=== PATIENT | female | born 1975 | race Two or more races ===

== ENCOUNTER 2019-11-02 12:44 | Emergency (ER) | payer MEDICAID ==
[~2019-11-02] VITALS: Ht 165.1 cm; Wt 74.5 kg
[2019-11-02 13:32] LABS: BASOPHILS # (AUTO) 0.1 X10'3 (0-0.2); BASOPHILS % (AUTO) 0.7 % (0-1); EOSINOPHILS # (AUTO) 0.2 X10'3 (0-0.9); EOSINOPHILS % (AUTO) 2.9 % (0-6); HEMATOCRIT 37.8 % (35.0-45.0); HEMOGLOBIN 13.1 g/dl (12.0-16.0); LYMPHOCYTES # (AUTO) 1.6 X10'3 (1.1-4.8); LYMPHOCYTES % (AUTO) 19.8 % (21-51); MEAN CORPUSCULAR HEMOGLOBIN 28.7 PG (27.0-31.0); MEAN CORPUSCULAR HGB CONC 34.7 g/dL (33.0-36.5); MEAN CORPUSCULAR VOLUME 82.8 FL (78-98); MEAN PLATELET VOLUME 9.2 FL (7.4-10.4); MONOCYTES # (AUTO) 0.4 X10'3 (0-0.9); MONOCYTES % (AUTO) 4.9 % (2-12); NEUTROPHILS # (AUTO) 5.7 X10'3 (1.8-7.7); NEUTROPHILS % (AUTO) 71.7 % (42-75); PLATELET COUNT 226 X10'3 (140-440); RED BLOOD COUNT 4.56 X10'6 (4.20-5.60); RED CELL DISTRIBUTION WIDTH 16.1 % (11.5-14.5)
[2019-11-02 13:46] LABS: ALANINE AMINOTRANSFERASE 17 U/L (12-78); ALBUMIN 3.7 G/DL (3.4-5.0); ALKALINE PHOSPHATASE 96 IU/L (46-116); ANION GAP 8 (8-16); ASPARTATE AMINO TRANSFERASE 17 U/L (10-37); BILIRUBIN,TOTAL 1.1 MG/DL (0.1-1.0); BLOOD UREA NITROGEN 14 MG/DL (7-18); BUN/CREATININE RATIO 24.6 (6.6-38.0); CALCIUM 8.4 MG/DL (8.5-10.1); CHLORIDE 107 MMOL/L (99-107); CREATININE 0.57 MG/DL (0.40-0.90); GLUCOSE 104 MG/DL (70-104); POTASSIUM 3.9 MMOL/L (3.5-5.1); SODIUM 139 MMOL/L (135-145); TOTAL CARBON DIOXIDE 24.4 MMOL/L (24-32); TOTAL PROTEIN 7.5 G/DL (6.4-8.2); eGFR > 90 ML/MIN
[2019-11-02] MEDS ORDERED: nitroGLYCERIN 0.4mg SUBLingual tab SL PRN ×2 (15:20→15:35)
[2019-11-02] MEDS ORDERED: acetaminophen 325mg tablet PO ONE (15:20)
[2019-11-02] MEDS ORDERED: aspirin 81mg tab.chew PO ONE (15:20)
[2019-11-02 18:11] VITALS: BP 119/79
== END 2019-11-02 17:57 | disposition home or self-care (01) ==
LOC: ER 12:44
DX: R07.89 Other chest pain (principal); R42 Dizziness and giddiness; E78.00 Pure hypercholesterolemia, unspecified; I10 Essential (primary) hypertension; I25.2 Old myocardial infarction; Z88.0 Allergy status to penicillin
CPT/HCPCS: 36415; 71045; 80053; 84484; 85025; 93005; 99285

== ENCOUNTER 2019-12-08 12:49 | Emergency (ER) | payer MEDICAID ==
[~2019-12-08] VITALS: Ht 165.1 cm; Wt 77.3 kg
[2019-12-08 13:09] LABS: BASOPHILS % (AUTO) 0.5 % (0-1); EOSINOPHILS # (AUTO) 0.2 X10'3 (0-0.9); EOSINOPHILS % (AUTO) 2.3 % (0-6); HEMATOCRIT 40.9 % (35.0-45.0); HEMOGLOBIN 13.7 g/dl (12.0-16.0); LYMPHOCYTES # (AUTO) 1.5 X10'3 (1.1-4.8); LYMPHOCYTES % (AUTO) 20.7 % (21-51); MEAN CORPUSCULAR HEMOGLOBIN 27.6 PG (27.0-31.0); MEAN CORPUSCULAR HGB CONC 33.4 g/dL (33.0-36.5); MEAN CORPUSCULAR VOLUME 82.4 FL (78-98); MEAN PLATELET VOLUME 9.4 FL (7.4-10.4); MONOCYTES # (AUTO) 0.2 X10'3 (0-0.9); MONOCYTES % (AUTO) 3.4 % (2-12); NEUTROPHILS # (AUTO) 5.3 X10'3 (1.8-7.7); NEUTROPHILS % (AUTO) 73.1 % (42-75); PLATELET COUNT 222 X10'3 (140-440); RED BLOOD COUNT 4.97 X10'6 (4.20-5.60); RED CELL DISTRIBUTION WIDTH 15.1 % (11.5-14.5); WHITE BLOOD COUNT 7.3 X10'3 (4.5-11.0)
[2019-12-08] MEDS ORDERED: aspirin 81mg tab.chew PO ONE (13:10)
[2019-12-08] MEDS: nitroGLYCERIN 0.4mg SUBLingual tab SL PRN ×2 (13:12→13:43)
[2019-12-08 13:23] LABS: ALANINE AMINOTRANSFERASE 25 U/L (12-78); ALKALINE PHOSPHATASE 105 IU/L (46-116); ANION GAP 11 (8-16); ASPARTATE AMINO TRANSFERASE 21 U/L (10-37); BILIRUBIN,TOTAL 1.5 MG/DL (0.1-1.0); BLOOD UREA NITROGEN 11 MG/DL (7-18); BUN/CREATININE RATIO 13.4 (6.6-38.0); CALCIUM 9.5 MG/DL (8.5-10.1); CHLORIDE 104 MMOL/L (99-107); CREATININE 0.82 MG/DL (0.40-0.90); GLUCOSE 148 MG/DL (70-104); POTASSIUM 3.8 MMOL/L (3.5-5.1); SODIUM 140 MMOL/L (135-145); TOTAL CARBON DIOXIDE 25.5 MMOL/L (24-32); TOTAL PROTEIN 7.9 G/DL (6.4-8.2); eGFR 76 ML/MIN
[2019-12-08 14:06] LABS: D-DIMER < 0.19 MG/L FEU (0-0.50)
[2019-12-08] MEDS ORDERED: ASPI81TA52 PO (14:14)
[2019-12-08] MEDS ORDERED: ATOR20TA PO (14:14)
[2019-12-08] MEDS ORDERED: CHOL20004 PO (14:14)
[2019-12-08] MEDS ORDERED: CARV3.122 PO (14:14)
[2019-12-08] MEDS ORDERED: LEVO125T8 PO (14:14)
[2019-12-08] MEDS ORDERED: WARF1TAB83 PO (14:14)
[2019-12-08] MEDS ORDERED: WARF10TA50 PO (14:14)
[2019-12-08] MEDS ORDERED: DULO60CA65 PO (14:14)
[2019-12-08] MEDS ORDERED: KEP500T PO (14:14)
[2019-12-08] MEDS ORDERED: CYAN500011 PO (14:22)
[2019-12-08] MEDS ORDERED: ISOS30TA9 PO (16:30)
[2019-12-08 17:14] VITALS: BP 127/57
== END 2019-12-08 17:16 | disposition home or self-care (01) ==
LOC: ER 12:49
DX: I20.9 Angina pectoris, unspecified (principal); R07.9 Chest pain, unspecified; R06.02 Shortness of breath; R11.0 Nausea; E78.00 Pure hypercholesterolemia, unspecified; I10 Essential (primary) hypertension; I25.2 Old myocardial infarction; G89.29 Other chronic pain; Z98.890 Other specified postprocedural states; Z88.0 Allergy status to penicillin; Z79.01 Long term (current) use of anticoagulants; Z79.82 Long term (current) use of aspirin; Z79.899 Other long term (current) drug therapy
CPT/HCPCS: 36415; 71045; 80053; 83880; 84484; 85025; 85379; 93005; 99285

== ENCOUNTER 2020-02-15 10:56 | Emergency (ER) | payer MEDICAID ==
[~2020-02-15] VITALS: Ht 165.1 cm; Wt 84.2 kg
[~2020-02-15 10:56] MED LIST: ASPI81TA52 PO; ATOR20TA PO; CARV3.122 PO; CHOL20004 PO; CYAN500011 PO; DULO60CA65 PO; KEP500T PO; LEVO125T8 PO; WARF10TA50 PO; WARF1TAB83 PO
--- NOTE | 2020-02-15 12:02 | NUR ---
Per Dr Wild if troponin lab ordered results negative then patient to have send out Novel Coronavirus swab, if positive then patient will be admitted at which time patient will have rapid Novel Coronavirus swab prior to admission. ERIC Begum made aware.
[2020-02-15 12:18] LABS: BASOPHILS % (AUTO) 0.8 % (0-1); EOSINOPHILS # (AUTO) 0.1 X10'3 (0-0.9); EOSINOPHILS % (AUTO) 2.2 % (0-6); HEMATOCRIT 40.4 % (35.0-45.0); HEMOGLOBIN 13.8 g/dl (12.0-16.0); LYMPHOCYTES # (AUTO) 1.3 X10'3 (1.1-4.8); LYMPHOCYTES % (AUTO) 26.1 % (21-51); MEAN CORPUSCULAR HEMOGLOBIN 28.3 PG (27.0-31.0); MEAN CORPUSCULAR HGB CONC 34.1 g/dL (33.0-36.5); MEAN CORPUSCULAR VOLUME 82.8 FL (78-98); MEAN PLATELET VOLUME 9.3 FL (7.4-10.4); MONOCYTES # (AUTO) 0.2 X10'3 (0-0.9); MONOCYTES % (AUTO) 4.3 % (2-12); NEUTROPHILS # (AUTO) 3.2 X10'3 (1.8-7.7); NEUTROPHILS % (AUTO) 66.6 % (42-75); PLATELET COUNT 193 X10'3 (140-440); RED BLOOD COUNT 4.88 X10'6 (4.20-5.60); RED CELL DISTRIBUTION WIDTH 17.2 % (11.5-14.5); WHITE BLOOD COUNT 4.8 X10'3 (4.5-11.0)
[2020-02-15 12:27] LABS: ALANINE AMINOTRANSFERASE 41 U/L (12-78); ALKALINE PHOSPHATASE 106 IU/L (46-116); ANION GAP 11 (8-16); ASPARTATE AMINO TRANSFERASE 26 U/L (10-37); BILIRUBIN,TOTAL 1.4 MG/DL (0.1-1.0); BLOOD UREA NITROGEN 12 MG/DL (7-18); BUN/CREATININE RATIO 14.8 (6.6-38.0); CALCIUM 9.1 MG/DL (8.5-10.1); CHLORIDE 103 MMOL/L (99-107); CREATININE 0.81 MG/DL (0.40-0.90); GLUCOSE 197 MG/DL (70-104); POTASSIUM 3.7 MMOL/L (3.5-5.1); SODIUM 139 MMOL/L (135-145); TOTAL CARBON DIOXIDE 24.8 MMOL/L (24-32); TOTAL PROTEIN 7.9 G/DL (6.4-8.2); eGFR 77 ML/MIN
[2020-02-15 13:19] VITALS: BP 117/89
== END 2020-02-15 13:20 | disposition home or self-care (01) ==
LOC: ER 10:57
DX: R05 Cough (principal); Z20.828 Contact with and (suspected) exposure to other viral communicable diseases; J02.9 Acute pharyngitis, unspecified; R09.81 Nasal congestion; R07.89 Other chest pain; I25.10 Atherosclerotic heart disease of native coronary artery without angina pectoris; E78.00 Pure hypercholesterolemia, unspecified; I10 Essential (primary) hypertension; I25.2 Old myocardial infarction; G89.29 Other chronic pain; Z88.0 Allergy status to penicillin; Z98.890 Other specified postprocedural states; Z79.82 Long term (current) use of aspirin; Z79.01 Long term (current) use of anticoagulants; Z79.899 Other long term (current) drug therapy
CPT/HCPCS: 36415; 71045; 80053; 84484; 85025; 93005; 99285; U0003

== ENCOUNTER 2020-02-24 10:39 | Emergency (ER) | payer MEDICAID ==
[~2020-02-24] VITALS: Ht 165.1 cm; Wt 79.5 kg
[2020-02-24] MEDS ORDERED: acetaminophen 325mg tablet PO ONE (11:40)
[2020-02-24] MEDS ORDERED: normal saline 1000ML IV soln IVB ONE (11:40)
[2020-02-24 12:32] LABS: BASOPHILS % (AUTO) 0.5 % (0-1); EOSINOPHILS # (AUTO) 0.1 X10'3 (0-0.9); EOSINOPHILS % (AUTO) 1.5 % (0-6); HEMATOCRIT 37.5 % (35.0-45.0); HEMOGLOBIN 12.8 g/dl (12.0-16.0); LYMPHOCYTES # (AUTO) 1.4 X10'3 (1.1-4.8); LYMPHOCYTES % (AUTO) 16.6 % (21-51); MEAN CORPUSCULAR HEMOGLOBIN 28.2 PG (27.0-31.0); MEAN CORPUSCULAR VOLUME 82.8 FL (78-98); MONOCYTES # (AUTO) 0.4 X10'3 (0-0.9); MONOCYTES % (AUTO) 5.5 % (2-12); NEUTROPHILS # (AUTO) 6.2 X10'3 (1.8-7.7); NEUTROPHILS % (AUTO) 75.9 % (42-75); PLATELET COUNT 217 X10'3 (140-440); RED BLOOD COUNT 4.53 X10'6 (4.20-5.60); RED CELL DISTRIBUTION WIDTH 16.2 % (11.5-14.5); WHITE BLOOD COUNT 8.2 X10'3 (4.5-11.0)
[2020-02-24 12:36] LABS: PARTIAL THROMBOPLASTIN TIME 40 SECONDS (22-32)
[2020-02-24 12:43] LABS: ALANINE AMINOTRANSFERASE 18 U/L (12-78); ALBUMIN 3.4 G/DL (3.4-5.0); ALBUMIN/GLOBULIN RATIO 0.9 (1.1-1.5); ALKALINE PHOSPHATASE 104 IU/L (46-116); ANION GAP 12 (8-16); ASPARTATE AMINO TRANSFERASE 18 U/L (10-37); BILIRUBIN,TOTAL 1.8 MG/DL (0.1-1.0); BLOOD UREA NITROGEN 9 MG/DL (7-18); BUN/CREATININE RATIO 12.5 (6.6-38.0); CALCIUM 8.8 MG/DL (8.5-10.1); CHLORIDE 105 MMOL/L (99-107); CREATININE 0.72 MG/DL (0.40-0.90); GLUCOSE 110 MG/DL (70-104); MAGNESIUM 1.6 MG/DL (1.5-2.4); PHOSPHORUS 3.5 MG/DL (2.3-4.5); POTASSIUM 3.9 MMOL/L (3.5-5.1); SODIUM 138 MMOL/L (135-145); TOTAL CARBON DIOXIDE 20.9 MMOL/L (24-32); TOTAL PROTEIN 7.2 G/DL (6.4-8.2); eGFR 88 ML/MIN
[2020-02-24] MEDS ORDERED: iohexol 300mg/ml 100ml inj. ONE (15:57)
[2020-02-24 16:48] LABS: CLARITY,URINE SLIGHTLY CLOUDY (Clear); COLOR,URINE YELLOW (Yellow); GLUCOSE, URINE NEGATIVE (Neg); KETONES,URINE NEGATIVE (Neg); LEUKOCYTE ESTERASE ,URINE NEGATIVE (Neg); NITRITES, URINE POSITIVE (Neg); OCCULT BLOOD,URINE NEGATIVE (Neg); PH,URINE 6.5 (4.8-8.0); PROTEIN,URINE NEGATIVE (Neg); UROBILINOGEN,URINE 0.2 E.U/dL (0.2-1.0)
[2020-02-24 16:58] LABS: UA COLLECTION TYPE CLN CATCH MIDSTREAM
--- NOTE | 2020-02-24 16:58 | NUR ---
Jona cortez in ED - 02/24/20 at 1659 by PAPI brayan rt for neb. treatment
[2020-02-24 17:02] LABS: BACTERIA,URINE 3+ /HPF (Neg); RBC,URINE NONE SEEN /HPF (0-2); SQUAMOUS EPITHELIAL CELL,UR FEW /LPF (FEW); WBC,URINE 0-4 /HPF (0-4)
[2020-02-24] MEDS ORDERED: SULF1TAB49 PO (18:04)
[2020-02-24] MEDS ORDERED: NITR100C6 PO (18:28)
[2020-02-24] MEDS ORDERED: warfarin 3mg tablet PO ONE (21:00)
--- NOTE | 2020-02-24 23:57 | NUR ---
EMS AT BEDSIDE TO TRANSPORT PT HOME.
[2020-02-25 00:11] VITALS: BP 116/81
== END 2020-02-25 00:12 | disposition home or self-care (01) ==
LOC: MERGE 10:40 → ER 10:40
DX: R10.9 Unspecified abdominal pain (principal); U07.1 COVID-19
CPT/HCPCS: 36415; 71045; 74177; 76856; 80053; 81001; 83735; 84100; 84484; 85025; 85610; 85730; 87088; 93005; 93976; 99285; J7030; Q9967

== ENCOUNTER 2020-03-05 09:50 | Outpatient (CLI) | payer MEDICAID ==
[~2020-03-05 09:50] MED LIST changes: +NITR100C6 PO
[2020-03-05] MEDS ORDERED: NITR0.4T51 SL (11:22)
[2020-03-05] MEDS ORDERED: LYR75C PO (11:22)
[2020-03-05] MEDS ORDERED: ESCI10TA61 PO (11:22)
[2020-03-05] MEDS ORDERED: AMLO2.5T2 PO (11:22)
[2020-03-05 11:38] LABS: BASOPHILS % (AUTO) 0.6 % (0-1); EOSINOPHILS # (AUTO) 0.1 X10'3 (0-0.9); EOSINOPHILS % (AUTO) 1.8 % (0-6); LYMPHOCYTES # (AUTO) 1.4 X10'3 (1.1-4.8); LYMPHOCYTES % (AUTO) 19.9 % (21-51); MEAN CORPUSCULAR HGB CONC 33.7 g/dL (33.0-36.5); MEAN CORPUSCULAR VOLUME 83.2 FL (78-98); MEAN PLATELET VOLUME 9.3 FL (7.4-10.4); MONOCYTES # (AUTO) 0.5 X10'3 (0-0.9); MONOCYTES % (AUTO) 6.5 % (2-12); NEUTROPHILS % (AUTO) 71.2 % (42-75); PRE OP HEMATOCRIT 38.3 % (35.0-45.0); PRE OP HEMOGLOBIN 12.9 g/dL (12.0-16.0); PRE OP PLATELET COUNT 220 X10'3 (140-440)
[2020-03-05 11:52] LABS: HCG SERUM QL NEGATIVE
[2020-03-05 11:54] LABS: PRE OP PROTIME 27.4 SECONDS (9.0-12.0)
[2020-03-05 11:57] LABS: PRE OP INR 2.8 INR
[2020-03-05 12:00] LABS: CHLORIDE 106 MMOL/L (99-107); PRE OP GLUCOSE 119 MG/DL (70-104); PRE OP POTASSIUM 3.7 MMOL/L (3.4-5.1); PRE OP SODIUM 139 MMOL/L (135-145); TOTAL CARBON DIOXIDE 24.3 MMOL/L (24-32)
[2020-03-05 12:01] LABS: ALBUMIN 3.9 G/DL (3.4-5.0); ALKALINE PHOSPHATASE 110 IU/L (46-116); BLOOD UREA NITROGEN 9 MG/DL (7-18); BUN/CREATININE RATIO 11.3 (6.6-38.0); CALCIUM 8.7 MG/DL (8.5-10.1); PRE OP ALT 28 U/L (30-65); PRE OP ANION GAP 9 (8-16); PRE OP AST 19 U/L (10-37); PRE OP BILIRUB, TOTAL 1.3 MG/DL (0.0-1.0); TOTAL PROTEIN 7.8 G/DL (6.4-8.2); eGFR 78 ML/MIN
[2020-03-05 12:11] LABS: CLARITY,URINE CLOUDY (Clear); COLOR,URINE YELLOW (Yellow); GLUCOSE, URINE NEGATIVE (Neg); KETONES,URINE NEGATIVE (Neg); LEUKOCYTE ESTERASE ,URINE NEGATIVE (Neg); NITRITES, URINE NEGATIVE (Neg); OCCULT BLOOD,URINE LARGE (Neg); PROTEIN,URINE NEGATIVE (Neg); UROBILINOGEN,URINE 0.2 E.U/dL (0.2-1.0)
[2020-03-05 12:15] LABS: UA COLLECTION TYPE CLN CATCH MIDSTREAM
[2020-03-05 12:17] LABS: BACTERIA,URINE 2+ /HPF (Neg); MUCUS STRANDS NONE SEEN /LPF (Neg); RBC,URINE 50-100 /HPF (0-2); SQUAMOUS EPITHELIAL CELL,UR MANY /LPF (FEW); WBC,URINE 0-4 /HPF (0-4)
== END 2020-03-05 23:59 | disposition home or self-care (01) ==
LOC: PRE-OP 09:50 → EDSTATUS 03-15 07:30
PROVIDERS: ATTEND Obstetrics & Gynecology
DX: Z01.818 Encounter for other preprocedural examination (principal); Z11.59 Encounter for screening for other viral diseases; D17.1 Benign lipomatous neoplasm of skin and subcutaneous tissue of trunk; N93.9 Abnormal uterine and vaginal bleeding, unspecified; R19.00 Intra-abdominal and pelvic swelling, mass and lump, unspecified site
CPT/HCPCS: 36415; 80053; 81001; 84703; 85025; 85610; 85730; 86885; 86900; 86901; U0003

== ENCOUNTER 2020-04-19 17:54 | Emergency (ER) | payer MEDICAID ==
[~2020-04-19] VITALS: Ht 165.1 cm; Wt 81.8 kg
[~2020-04-19 17:54] MED LIST changes: +AMLO2.5T2 PO; +ESCI10TA61 PO; +LYR75C PO; +NITR0.4T51 SL; -NITR100C6 PO
[2020-04-19 18:58] LABS: BASOPHILS % (AUTO) 0.6 % (0-1); EOSINOPHILS # (AUTO) 0.2 X10'3 (0-0.9); EOSINOPHILS % (AUTO) 2.5 % (0-6); HEMATOCRIT 40.4 % (35.0-45.0); HEMOGLOBIN 13.7 g/dl (12.0-16.0); LYMPHOCYTES # (AUTO) 1.4 X10'3 (1.1-4.8); LYMPHOCYTES % (AUTO) 18.4 % (21-51); MEAN CORPUSCULAR HEMOGLOBIN 28.4 PG (27.0-31.0); MEAN CORPUSCULAR HGB CONC 34.1 g/dL (33.0-36.5); MEAN CORPUSCULAR VOLUME 83.5 FL (78-98); MEAN PLATELET VOLUME 9.3 FL (7.4-10.4); MONOCYTES # (AUTO) 0.5 X10'3 (0-0.9); MONOCYTES % (AUTO) 6.5 % (2-12); NEUTROPHILS # (AUTO) 5.5 X10'3 (1.8-7.7); PLATELET COUNT 257 X10'3 (140-440); RED BLOOD COUNT 4.84 X10'6 (4.20-5.60); WHITE BLOOD COUNT 7.6 X10'3 (4.5-11.0)
[2020-04-19 19:11] LABS: ALANINE AMINOTRANSFERASE 38 U/L (12-78); ALBUMIN 4.3 G/DL (3.4-5.0); ALKALINE PHOSPHATASE 117 IU/L (46-116); AMYLASE 42 U/L (25-115); ANION GAP 7 (8-16); ASPARTATE AMINO TRANSFERASE 25 U/L (10-37); BILIRUBIN,TOTAL 1.3 MG/DL (0.1-1.0); BLOOD UREA NITROGEN 11 MG/DL (7-18); CALCIUM 9.4 MG/DL (8.5-10.1); CHLORIDE 103 MMOL/L (99-107); CREATININE 0.61 MG/DL (0.40-0.90); GLUCOSE 90 MG/DL (70-104); LIPASE 181 U/L (73-393); POTASSIUM 3.7 MMOL/L (3.5-5.1); SODIUM 137 MMOL/L (135-145); TOTAL CARBON DIOXIDE 27.1 MMOL/L (24-32); TOTAL PROTEIN 8.4 G/DL (6.4-8.2); eGFR > 90 ML/MIN
[2020-04-19 19:59] LABS: CLARITY,URINE CLEAR (Clear); COLOR,URINE YELLOW (Yellow); GLUCOSE, URINE NEGATIVE (Neg); KETONES,URINE NEGATIVE (Neg); LEUKOCYTE ESTERASE ,URINE NEGATIVE (Neg); NITRITES, URINE NEGATIVE (Neg); OCCULT BLOOD,URINE NEGATIVE (Neg); PROTEIN,URINE NEGATIVE (Neg); UROBILINOGEN,URINE 0.2 E.U/dL (0.2-1.0)
[2020-04-19 20:03] LABS: UA COLLECTION TYPE CLN CATCH MIDSTREAM
[2020-04-19 21:36] LABS: URINE HCG NEGATIVE (NEG)
[2020-04-19] MEDS ORDERED: ondansetron 4mg rapidly disintigrating tab PO ONE (21:55)
[2020-04-19] MEDS ORDERED: HYDROcodone/acetaminophen 10/325mg tab PO ONE (21:55)
--- NOTE | 2020-04-19 22:00 | NUR ---
MEDICATED PT FOR DISCOMFORT 04/29 WITH PO NORCO PT REPORTED THAT HER SISTER WILL PICK HER UP AT DISCHARGE . PT WILL NOT BE DRIVING HOME .
[2020-04-19] MEDS ORDERED: ONDA4TAB6 PO (22:06)
[2020-04-19 22:18] LABS: TROPONIN I < 0.04 NG/ML (0.0-0.05)
[2020-04-19 23:30] VITALS: BP 133/75
== END 2020-04-19 23:21 | disposition home or self-care (01) ==
LOC: ER 17:54
DX: R10.11 Right upper quadrant pain (principal); R10.31 Right lower quadrant pain; R11.0 Nausea; I25.10 Atherosclerotic heart disease of native coronary artery without angina pectoris; E78.00 Pure hypercholesterolemia, unspecified; I10 Essential (primary) hypertension; I25.2 Old myocardial infarction; G89.29 Other chronic pain; Z88.0 Allergy status to penicillin; Z79.899 Other long term (current) drug therapy; Z79.82 Long term (current) use of aspirin
CPT/HCPCS: 36415; 74176; 80053; 81003; 81025; 82150; 83690; 84484; 85025; 99284

== ENCOUNTER 2020-05-03 05:27 | Inpatient (IN) | payer MEDICAID ==
[2020-04-27 12:56] LABS: BASOPHILS % (AUTO) 0.6 % (0-1); EOSINOPHILS # (AUTO) 0.2 X10'3 (0-0.9); EOSINOPHILS % (AUTO) 2.2 % (0-6); LYMPHOCYTES # (AUTO) 1.4 X10'3 (1.1-4.8); LYMPHOCYTES % (AUTO) 17.9 % (21-51); MEAN CORPUSCULAR HEMOGLOBIN 28.6 PG (27.0-31.0); MEAN CORPUSCULAR HGB CONC 33.9 g/dL (33.0-36.5); MEAN CORPUSCULAR VOLUME 84.4 FL (78-98); MEAN PLATELET VOLUME 9.3 FL (7.4-10.4); MONOCYTES # (AUTO) 0.5 X10'3 (0-0.9); MONOCYTES % (AUTO) 6.9 % (2-12); NEUTROPHILS # (AUTO) 5.5 X10'3 (1.8-7.7); NEUTROPHILS % (AUTO) 72.4 % (42-75); PRE OP HEMATOCRIT 39.1 % (35.0-45.0); PRE OP HEMOGLOBIN 13.3 g/dL (12.0-16.0); PRE OP PLATELET COUNT 239 X10'3 (140-440); RED BLOOD COUNT 4.63 X10'6 (4.20-5.60)
[2020-04-27 13:08] LABS: CLARITY,URINE SLIGHTLY CLOUDY (Clear); COLOR,URINE YELLOW (Yellow); GLUCOSE, URINE NEGATIVE (Neg); KETONES,URINE NEGATIVE (Neg); LEUKOCYTE ESTERASE ,URINE NEGATIVE (Neg); NITRITES, URINE NEGATIVE (Neg); OCCULT BLOOD,URINE NEGATIVE (Neg); PROTEIN,URINE NEGATIVE (Neg)
[2020-04-27 13:10] LABS: UA COLLECTION TYPE CLN CATCH MIDSTREAM
[2020-04-27 13:11] LABS: PRE OP PROTIME 10.7 SECONDS (9.0-12.0)
[2020-04-27 13:13] LABS: HCG SERUM QL NEGATIVE
[2020-04-27 13:19] LABS: MUCUS STRANDS MANY /LPF (Neg); RBC,URINE NONE SEEN /HPF (0-2); WBC,URINE 0-4 /HPF (0-4)
[2020-04-27 13:20] LABS: BACTERIA,URINE 1+ /HPF (Neg); SQUAMOUS EPITHELIAL CELL,UR MANY /LPF (FEW)
[2020-04-27 13:27] LABS: ALKALINE PHOSPHATASE 105 IU/L (46-116); BLOOD UREA NITROGEN 14 MG/DL (7-18); BUN/CREATININE RATIO 19.7 (6.6-38.0); CALCIUM 8.9 MG/DL (8.5-10.1); CHLORIDE 103 MMOL/L (99-107); CREATININE 0.71 MG/DL (0.40-0.90); PRE OP ALT 33 U/L (30-65); PRE OP ANION GAP 6 (8-16); PRE OP AST 25 U/L (10-37); PRE OP BILIRUB, TOTAL 1.8 MG/DL (0.0-1.0); PRE OP GLUCOSE 86 MG/DL (70-104); PRE OP SODIUM 137 MMOL/L (135-145); TOTAL CARBON DIOXIDE 27.8 MMOL/L (24-32); TOTAL PROTEIN 8.1 G/DL (6.4-8.2); eGFR 89 ML/MIN
[~2020-05-03] VITALS: Ht 165.1 cm; Wt 81.6 kg
[2020-05-03] VITALS (27 sets, daily range): BP systolic 94–122; BP diastolic 59–82
[~2020-05-03 05:27] MED LIST changes: -CHOL20004 PO; -CYAN500011 PO; +HYDR-4383 PO; -LYR75C PO; +PANT40TA54 PO; -WARF10TA50 PO
[2020-05-03] MEDS ORDERED: gentamicin inj 400 MG in normal saline 100ml IV soln 100 ML IV ONE (06:05)
[2020-05-03 06:44] LABS: PARTIAL THROMBOPLASTIN TIME 30 SECONDS (22-32)
[2020-05-03] MEDS ORDERED: BUPIVAcaine/PF 2.5 mg/ml (0.25%) 30ml vial ONE (06:50)
[2020-05-03] MEDS ORDERED: sevoflurane 250ml liquid IH ONE (07:23)
[2020-05-03] MEDS ORDERED: fentaNYL /PF 50mcg/ml 5ml ampule ONE (07:27)
[2020-05-03] MEDS ORDERED: midazolam 2 mg/2 ml injection ONE (07:27)
[2020-05-03] MEDS ORDERED: ringers solution, lacted 1,000 ML IV SCH (08:12)
[2020-05-03] MEDS ORDERED: meperidine/PF 25mg/ml syringe IV PRN ×2 (08:15)
[2020-05-03] MEDS ORDERED: morphine 4 MG/ML inj SYRINge IV PRN (08:15)
[2020-05-03] MEDS ORDERED: ondansetron/PF 4mg/2ml inj IV PRN ×2 (08:15→10:25)
[2020-05-03] MEDS ORDERED: proCHLORperazine 10 MG/2 ml inj IV PRN (08:15)
[2020-05-03] MEDS ORDERED: morphine 2 MG/ML inj. syringe IV PRN (08:15)
[2020-05-03] MEDS ORDERED: dexamethasone sod phosphate 4mg/ml inj. ONE (09:17)
[2020-05-03] MEDS ORDERED: ondansetron/PF 4mg/2ml inj ONE (09:17)
[2020-05-03] MEDS ORDERED: propofol inj 20 ML IV ONE (09:17)
[2020-05-03] MEDS ORDERED: neostigmine methylsulfate 1 MG/ML 10ml vial ONE (09:17)
[2020-05-03] MEDS ORDERED: glycopyrrolate 0.2mg/ml inj ONE (09:17)
[2020-05-03] MEDS ORDERED: LIDOcaine 2% (20mg/ml) 5ml vial ONE (09:17)
[2020-05-03] MEDS ORDERED: rocuronium 10mg/ml inj IV ONE (09:17)
[2020-05-03] MEDS ORDERED: albumin (Human) 5% 250ml 250 ML IV ONE ×3 (09:17→10:00)
[2020-05-03] MEDS ORDERED: ePHEDrine 50MG/ML INJ. ONE (09:41)
[2020-05-03] MEDS ORDERED: acetaminophen 1,000mg/100ml IV 100 ML IV ONE (10:02)
--- NOTE | 2020-05-03 10:17 | NUR ---
RECEIVED FROM OR VIA BED ACCOMPANIED BY ANESTHESIOLOGIST DR RIVAS, REPORT GIVEN. PT DROWSY BUT AWAKENS. PT MALTESE SPEAKING ONLY BUT DENIES PAIN ACCORDING TO DR RIVAS WHO IS MALTESE SPEAKING.ABD PAD DRESSING TO ABD CDI, F/C DRAINING CLEAR YELLOW FLUID, 20 GAUGE PIV R HAND PATENT AND RUNNING LR AT 100 ML/HR. PPULSES PALPABLE, CAP REFILL BRISK, ABD SOFT, VSS.
[2020-05-03] MEDS ORDERED: metoclopramide 5 mg/ml inj IV PRN (10:25)
[2020-05-03] MEDS ORDERED: naloxone 0.4 mg/ml inj IV PRN (10:25)
[2020-05-03] MEDS ORDERED: temazepam 15mg capsule PO PRN (10:25)
[2020-05-03] MEDS ORDERED: normal saline 500ml IV soln 500 ML IV PRN (10:25)
[2020-05-03] MEDS ORDERED: LORazepam 2 mg/ml vial IV PRN (10:25)
[2020-05-03] MEDS ORDERED: CADD PCA waste documentation MC PRN (10:25)
[2020-05-03] MEDS ORDERED: HYDROcodone/acetaminophen 10/325mg tab PO PRN (10:25)
[2020-05-03] MEDS ORDERED: diphenhydrAMINE 50 mg/ml inj IV PRN (10:25)
[2020-05-03] MEDS: meperidine/PF 25mg/ml syringe IV PRN ×2 (10:53→11:02)
[2020-05-03 11:43] LABS: BASOPHILS % (AUTO) 0.2 % (0-1); EOSINOPHILS % (AUTO) 0.3 % (0-6); HEMATOCRIT 33.3 % (35.0-45.0); HEMOGLOBIN 11.2 g/dl (12.0-16.0); LYMPHOCYTES # (AUTO) 1.2 X10'3 (1.1-4.8); LYMPHOCYTES % (AUTO) 9.8 % (21-51); MEAN CORPUSCULAR HEMOGLOBIN 29.2 PG (27.0-31.0); MEAN CORPUSCULAR HGB CONC 33.7 g/dL (33.0-36.5); MEAN CORPUSCULAR VOLUME 86.7 FL (78-98); MEAN PLATELET VOLUME 9.1 FL (7.4-10.4); MONOCYTES # (AUTO) 0.3 X10'3 (0-0.9); MONOCYTES % (AUTO) 2.4 % (2-12); NEUTROPHILS # (AUTO) 10.9 X10'3 (1.8-7.7); NEUTROPHILS % (AUTO) 87.3 % (42-75); PLATELET COUNT 166 X10'3 (140-440); RED BLOOD COUNT 3.84 X10'6 (4.20-5.60); RED CELL DISTRIBUTION WIDTH 15.8 % (11.5-14.5); WHITE BLOOD COUNT 12.5 X10'3 (4.5-11.0)
[2020-05-03] MEDS: HYDROmorphone/NS 1 mg/ml CADD 50 ML IV SCH ×7 (11:58→23:00)
--- NOTE | 2020-05-03 12:37 | NUR ---
TRANSPORTED TO TELE UNIT VIA BED WITH BED RAILS UP, TELE #28 ON, REPORT GIVEN. PT AWAKE AND ALERT, PT URDU SPEAKING ONLY.ABD PAD DRESSING TO ABD CDI, F/C DRAINING CLEAR YELLOW FLUID, 20 GAUGE PIV R HAND PATENT AND RUNNING LR AT 100 ML/HR. PPULSES PALPABLE, CAP REFILL BRISK, ABD SOFT, VSS. TOLERATING FLUIDS WELL AND RESTING COMFORTABLY.
[2020-05-03] MEDS ORDERED: HYDROcodone/acetaminophen 5mg/325mg tablet PO PRN (13:55)
[2020-05-03] MEDS ORDERED: nitroGLYCERIN 0.4mg SUBLingual tab SL PRN (13:55)
--- NOTE | 2020-05-03 15:30 | NUR ---
Pt arrived to room. Oriented to room. Call light within reach and bed low to ground. Post - op vitals started.
[2020-05-03] MEDS ORDERED: gentamicin in saline, iso-osm 80 MG/50 ML premix IV SCH (16:00)
[2020-05-03] MEDS: gentamicin inj 80 MG in normal saline 100ml IV soln 98 ML IV SCH (16:21)
[2020-05-03] MEDS: ferrous sulfate 325mg tablet PO SCH (17:30)
[2020-05-03] MEDS: vancomycin/NS 1 GM ADD-VANTAGE 250 ML IV SCH (18:21)
--- NOTE | 2020-05-03 18:30 | NUR ---
Patient in room PCU 3018. I have received report from Kristy MARVIN and had the opportunity to ask questions and assume patient care.
--- NOTE | 2020-05-03 18:38 | NUR ---
Gave report to Ilene MARVIN.
[2020-05-03] MEDS: docusate sod 100mg capsule PO SCH (20:09)
[2020-05-03] MEDS: carVEDilol 3.125mg tablet PO SCH (20:10)
[2020-05-03] MEDS: levetiracetam 250mg tablet PO SCH (20:10)
[2020-05-03] MEDS: atorvastatin 20mg tablet PO SCH (20:11)
[2020-05-03] MEDS: warfarin 3mg tablet PO SCH (20:29)
--- NOTE | 2020-05-03 22:23 | NUR ---
Patient in room PCU 3018. I have received report from Kam rodriguez and had the opportunity to ask questions and assume patient care.
--- NOTE | 2020-05-03 22:25 | NUR ---
Problems reprioritized. Patient report given, questions answered & plan of care reviewed with Sasha MARVIN.
--- NOTE | 2020-05-03 22:26 | NUR ---
Patient has a pitcher of iced water she has been drinking . Offered apple juice - did not want. Addendum: 05/03/20 at 2227 by Ilene Braswell RN Amended: Links added.
[2020-05-04] MEDS: gentamicin inj 80 MG in normal saline 100ml IV soln 98 ML IV SCH ×2 (00:15→08:04)
[2020-05-04] MEDS: HYDROmorphone/NS 1 mg/ml CADD 50 ML IV SCH ×6 (01:00→11:00)
[2020-05-04] MEDS: vancomycin/NS 1 GM ADD-VANTAGE 250 ML IV SCH (05:10)
--- NOTE | 2020-05-04 05:50 | NUR ---
PT DID NOT SLEEP WELL, ALTHOUGH SHE RESTED WITH EYES CLOSED. COMPLAINED OF STRAUSS BACK UP, BETTER SINCE INITIALLY DRAINED. PT USES TRANSLATION HARSHA ON PHONE
[2020-05-04 06:00] VITALS: BP 103/63
[2020-05-04 06:24] LABS: BASOPHILS % (AUTO) 0.1 % (0-1); EOSINOPHILS % (AUTO) 0.1 % (0-6); HEMATOCRIT 25.5 % (35.0-45.0); HEMOGLOBIN 8.7 g/dl (12.0-16.0); LYMPHOCYTES # (AUTO) 0.8 X10'3 (1.1-4.8); LYMPHOCYTES % (AUTO) 8.3 % (21-51); MEAN CORPUSCULAR HEMOGLOBIN 29.5 PG (27.0-31.0); MEAN CORPUSCULAR HGB CONC 34.3 g/dL (33.0-36.5); MEAN CORPUSCULAR VOLUME 85.8 FL (78-98); MEAN PLATELET VOLUME 9.2 FL (7.4-10.4); MONOCYTES # (AUTO) 0.6 X10'3 (0-0.9); MONOCYTES % (AUTO) 5.9 % (2-12); NEUTROPHILS # (AUTO) 8.5 X10'3 (1.8-7.7); NEUTROPHILS % (AUTO) 85.6 % (42-75); PLATELET COUNT 167 X10'3 (140-440); RED BLOOD COUNT 2.97 X10'6 (4.20-5.60); RED CELL DISTRIBUTION WIDTH 15.9 % (11.5-14.5)
--- NOTE | 2020-05-04 06:33 | NUR ---
Problems reprioritized. Patient report given, questions answered & plan of care reviewed with dAY sHIFT rn.
[2020-05-04 06:54] LABS: ALANINE AMINOTRANSFERASE 26 U/L (12-78); ALBUMIN 2.9 G/DL (3.4-5.0); ALBUMIN/GLOBULIN RATIO 1.1 (1.1-1.5); ALKALINE PHOSPHATASE 56 IU/L (46-116); ANION GAP 9 (8-16); ASPARTATE AMINO TRANSFERASE 14 U/L (10-37); BILIRUBIN,TOTAL 1.9 MG/DL (0.1-1.0); BLOOD UREA NITROGEN 7 MG/DL (7-18); BUN/CREATININE RATIO 9.1 (6.6-38.0); CHLORIDE 109 MMOL/L (99-107); CREATININE 0.77 MG/DL (0.40-0.90); GLUCOSE 109 MG/DL (70-104); POTASSIUM 3.1 MMOL/L (3.5-5.1); SODIUM 141 MMOL/L (135-145); TOTAL CARBON DIOXIDE 23.4 MMOL/L (24-32); TOTAL PROTEIN 5.5 G/DL (6.4-8.2); eGFR 81 ML/MIN
--- NOTE | 2020-05-04 06:54 | NUR ---
Patient in room U 3018. I have received report from Ryann Baez RN and had the opportunity to ask questions and assume patient care. Patient is resting in bed, no signs of distress.
[2020-05-04] MEDS ORDERED: pantoprazole 40mg Tablet.DR PO SCH (08:00)
[2020-05-04] MEDS: ferrous sulfate 325mg tablet PO SCH ×2 (08:01→16:31)
[2020-05-04] MEDS: docusate sod 100mg capsule PO SCH ×2 (08:02→21:11)
[2020-05-04] MEDS: duloxetine 30mg CAPSULE.DR PO SCH (08:02)
[2020-05-04] MEDS: aspirin 81mg tablet.DR PO SCH (08:03)
[2020-05-04] MEDS: levetiracetam 250mg tablet PO SCH ×2 (08:03→21:09)
[2020-05-04] MEDS: amLODIPine 2.5mg tablet PO SCH (08:03)
[2020-05-04] MEDS: carVEDilol 3.125mg tablet PO SCH ×2 (08:04→21:09)
[2020-05-04] MEDS: ESCITALOPRAM OXALATE 5 MG TABLET PO SCH (08:04)
[2020-05-04] MEDS: levoTHYROXINE 125mcg tablet PO SCH (08:04)
--- NOTE | 2020-05-04 09:00 | NUR ---
Dr Barron at bedside with a resident and tele aide to translate. Patients questions were answered. Dr barron said to keep patient bedrest for today and leave the pena catheter in. New order obtained for CBC redraw at 1700 tonight. patient will be staying another night here and she will round on the patient tomorrow morning.
[2020-05-04 11:00] VITALS: BP 96/48
--- NOTE | 2020-05-04 14:15 | NUR ---
attempted to call Dr. Quinones per wire charger request regarding transferring patient. no answer, mailbox is full.
[2020-05-04 16:25] VITALS: BP 98/56
[2020-05-04 18:00] LABS: BASOPHILS % (AUTO) 0.4 % (0-1); EOSINOPHILS % (AUTO) 0.5 % (0-6); HEMATOCRIT 26.9 % (35.0-45.0); HEMOGLOBIN 9.1 g/dl (12.0-16.0); LYMPHOCYTES # (AUTO) 1.4 X10'3 (1.1-4.8); MEAN CORPUSCULAR HEMOGLOBIN 29.1 PG (27.0-31.0); MEAN CORPUSCULAR HGB CONC 33.8 g/dL (33.0-36.5); MEAN CORPUSCULAR VOLUME 86.1 FL (78-98); MONOCYTES # (AUTO) 0.6 X10'3 (0-0.9); MONOCYTES % (AUTO) 7.7 % (2-12); NEUTROPHILS # (AUTO) 5.6 X10'3 (1.8-7.7); NEUTROPHILS % (AUTO) 73.4 % (42-75); PLATELET COUNT 172 X10'3 (140-440); RED BLOOD COUNT 3.13 X10'6 (4.20-5.60); RED CELL DISTRIBUTION WIDTH 15.9 % (11.5-14.5); WHITE BLOOD COUNT 7.6 X10'3 (4.5-11.0)
--- NOTE | 2020-05-04 18:00 | NUR ---
Student documentation: I have reviewed and agree with all interventions, assessments performed and documented by YON Traylor. Student Medication Administration: For this medication-pass time frame, all medication were reviewed, dispensed, administered and documented per hospital policy by SN Kymberly.
--- NOTE | 2020-05-04 18:21 | NUR ---
Problems reprioritized. Patient report given, questions answered & plan of care reviewed with YON Rodriguez.
--- NOTE | 2020-05-04 18:30 | NUR ---
Patient in room PCU 3018. I have received report from DANNY MARVIN and had the opportunity to ask questions and assume patient care.
[2020-05-04 19:00] VITALS: BP 103/75
[2020-05-04] MEDS: warfarin 3mg tablet PO SCH (21:09)
[2020-05-04] MEDS: HYDROcodone/acetaminophen 5mg/325mg tablet PO PRN (21:10)
[2020-05-04] MEDS: atorvastatin 20mg tablet PO SCH (21:10)
--- NOTE | 2020-05-04 21:30 | NUR ---
TELEMETRY DISCONTINUED PER MD'S ORDER. PATIENT FOR TRANSFER TO SURGICAL FLOOR.
[2020-05-04 23:00] VITALS: BP 108/60
--- NOTE | 2020-05-04 23:30 | NUR ---
RECEIVED A CALL FROM NURSING SUP, PATIENT TO TRANSFER TO [facility] NEURO 4012B.
--- NOTE | 2020-05-05 00:45 | NUR ---
PATIENT TRANSFERRED TO ORTHO NEURO ROOM 4012B AFTER REPORT WAS GIVEN TO ABIOLA MARVIN.
--- NOTE | 2020-05-05 01:00 | NUR ---
Pt arrived to floor via bed and was transferred to ortho bed via slide board as patient is on bed rest. Patient is alert and orientated with stable VS. 2 RN skin check was complete with Malou RN. Patient verbalized understanding for POC. Call light within reach.
[2020-05-05 01:30] VITALS: BP 108/59
[2020-05-05] MEDS: HYDROcodone/acetaminophen 5mg/325mg tablet PO PRN ×2 (01:38→08:04)
[2020-05-05 06:00] VITALS: BP 113/69
--- NOTE | 2020-05-05 06:20 | NUR ---
Report given to Angela MARVIN.
[2020-05-05 06:58] LABS: BASOPHILS % (AUTO) 0.5 % (0-1); EOSINOPHILS # (AUTO) 0.1 X10'3 (0-0.9); EOSINOPHILS % (AUTO) 1.8 % (0-6); HEMATOCRIT 27.2 % (35.0-45.0); HEMOGLOBIN 9.2 g/dl (12.0-16.0); LYMPHOCYTES # (AUTO) 1.7 X10'3 (1.1-4.8); LYMPHOCYTES % (AUTO) 24.6 % (21-51); MEAN CORPUSCULAR HEMOGLOBIN 29.4 PG (27.0-31.0); MEAN CORPUSCULAR HGB CONC 33.9 g/dL (33.0-36.5); MEAN CORPUSCULAR VOLUME 86.6 FL (78-98); MEAN PLATELET VOLUME 9.1 FL (7.4-10.4); MONOCYTES # (AUTO) 0.5 X10'3 (0-0.9); MONOCYTES % (AUTO) 6.8 % (2-12); NEUTROPHILS # (AUTO) 4.6 X10'3 (1.8-7.7); NEUTROPHILS % (AUTO) 66.3 % (42-75); PLATELET COUNT 165 X10'3 (140-440); RED BLOOD COUNT 3.14 X10'6 (4.20-5.60); WHITE BLOOD COUNT 6.9 X10'3 (4.5-11.0)
[2020-05-05] MEDS: aspirin 81mg tablet.DR PO SCH (07:52)
[2020-05-05] MEDS: docusate sod 100mg capsule PO SCH ×2 (07:52→21:06)
[2020-05-05] MEDS: pantoprazole 40mg Tablet.DR PO SCH (07:52)
[2020-05-05] MEDS: levetiracetam 250mg tablet PO SCH ×2 (07:52→21:08)
[2020-05-05] MEDS: levoTHYROXINE 125mcg tablet PO SCH (07:53)
[2020-05-05] MEDS: ESCITALOPRAM OXALATE 5 MG TABLET PO SCH (07:53)
[2020-05-05] MEDS: ferrous sulfate 325mg tablet PO SCH ×2 (07:53→17:16)
[2020-05-05] MEDS: carVEDilol 3.125mg tablet PO SCH ×2 (07:53→21:06)
[2020-05-05] MEDS: duloxetine 30mg CAPSULE.DR PO SCH (07:53)
[2020-05-05] MEDS: amLODIPine 2.5mg tablet PO SCH (07:54)
[2020-05-05 10:00] VITALS: BP 101/55
[2020-05-05] MEDS: enoxaparin 80mg/0.8ml syringe SUBCUT SCH ×2 (11:26→21:09)
[2020-05-05] MEDS ORDERED: HYDROcodone/acetaminophen 5mg/325mg tablet PO PRN (15:50)
--- NOTE | 2020-05-05 16:50 | NUR ---
Problems reprioritized. Patient report given, questions answered & plan of care reviewed with AMANDA MARVIN.
--- NOTE | 2020-05-05 17:10 | NUR ---
Patient in room MIGUEL 340. I have received report from YON Miller and had the opportunity to ask questions and assume patient care. Pt c/o abd pain. states voided prior transfer.
[2020-05-05] MEDS: HYDROcodone/acetaminophen 10/325mg tab PO PRN (17:16)
--- NOTE | 2020-05-05 18:35 | NUR ---
pt stated that she had chest pain that lasted a short time at the start of ring maker. pt stated that she was not currently having chest pain and that she was "feeling ok now". pt was assessed and informed that if she had chest pain again to use the call light immediately. pt was informed that she had nitro ordered if needed. MD was called for a potassium replacement and informed of pt complaint of chest pain. will continue to monitor
--- NOTE | 2020-05-05 18:36 | NUR ---
Problems reprioritized. Patient report given, questions answered & plan of care reviewed with YON Ponce.
--- NOTE | 2020-05-05 19:21 | NUR ---
Patient in room MIGUEL 340. I have received report from Leeanne MARVIN and had the opportunity to ask questions and assume patient care.
[2020-05-05] MEDS ORDERED: magnesium 4gm in 100ml NS 100 ML IV PRN (19:45)
[2020-05-05] MEDS ORDERED: magnesium Cl slow-release 64mg tablet PO PRN (19:45)
[2020-05-05] MEDS ORDERED: potassium CL 10mEq/100ml bag 100 ML IV PRN (19:45)
[2020-05-05] MEDS ORDERED: potassium Cl 20 mEq SR tablet PO PRN (19:45)
[2020-05-05 20:00] VITALS: BP 117/74
[2020-05-05] MEDS: K and/or MAG REPLACEMENT MC SCH (20:00)
[2020-05-05] MEDS ORDERED: warfarin 10mg tablet PO ONE (21:00)
[2020-05-05] MEDS ORDERED: warfarin 2.5mg tablet PO ONE (21:00)
[2020-05-05] MEDS: atorvastatin 20mg tablet PO SCH (21:09)
[2020-05-05] MEDS: potassium Cl 20 mEq SR tablet PO PRN (21:10)
[2020-05-06] VITALS: BP 124/69
[2020-05-06] MEDS: HYDROcodone/acetaminophen 10/325mg tab PO PRN ×2 (02:10→14:21)
[2020-05-06] MEDS: potassium Cl 20 mEq SR tablet PO PRN (02:10)
[2020-05-06 05:00] LABS: MAGNESIUM 1.5 MG/DL (1.5-2.4); POTASSIUM 3.6 MMOL/L (3.5-5.1)
--- NOTE | 2020-05-06 06:20 | NUR ---
Problems reprioritized. Patient report given, questions answered & plan of care reviewed with Magalie MARVIN.
--- NOTE | 2020-05-06 06:42 | NUR ---
Patient in room MIGUEL 340. I have received report from jeannie rodriguez and had the opportunity to ask questions and assume patient care.
[2020-05-06 07:00] VITALS: BP 130/70
[2020-05-06] MEDS: ferrous sulfate 325mg tablet PO SCH (07:48)
[2020-05-06] MEDS: duloxetine 30mg CAPSULE.DR PO SCH (07:49)
[2020-05-06] MEDS: carVEDilol 3.125mg tablet PO SCH (07:49)
[2020-05-06] MEDS: docusate sod 100mg capsule PO SCH (07:49)
[2020-05-06] MEDS: levetiracetam 250mg tablet PO SCH (07:50)
[2020-05-06] MEDS: ESCITALOPRAM OXALATE 5 MG TABLET PO SCH (07:50)
[2020-05-06] MEDS: aspirin 81mg tablet.DR PO SCH (07:50)
[2020-05-06] MEDS: pantoprazole 40mg Tablet.DR PO SCH (07:51)
[2020-05-06] MEDS: amLODIPine 2.5mg tablet PO SCH (07:51)
[2020-05-06] MEDS: levoTHYROXINE 125mcg tablet PO SCH (07:51)
[2020-05-06] MEDS: enoxaparin 80mg/0.8ml syringe SUBCUT SCH (07:52)
[2020-05-06] MEDS: K and/or MAG REPLACEMENT MC SCH (07:54)
[2020-05-06 10:00] VITALS: BP 124/68
[2020-05-06] MEDS ORDERED: magnesium hydroxide 30ml (MOM) UD suspension PO PRN (12:35)
[2020-05-06] MEDS ORDERED: ENOX80SY7 SQ (17:35)
[2020-05-06] MEDS ORDERED: HYDR-4353 PO (17:41)
[2020-05-06] MEDS ORDERED: warfarin 4mg tablet PO ONE (21:00)
[2020-05-06] MEDS ORDERED: warfarin 10mg tablet PO ONE (21:00)
== END 2020-05-06 18:20 | disposition home or self-care (01) | DRG 513 ==
LOC: UNDOADMIN 05:27 → PAS IN 05:27 → EDSTATUS 07:30 → PAS IN 10:25 → PCU 3S 12:32 → ORTHO 4S 05-05 00:50 → SUR 3N 05-05 17:03
PROVIDERS: ADMIT Obstetrics & Gynecology; ATTEND Obstetrics & Gynecology
PROC: 0UT70ZZ Resection of Bilateral Fallopian Tubes, Open Approach (ICD-10-PCS; 2020-05-03)
PROC: 0UT20ZZ Resection of Bilateral Ovaries, Open Approach (ICD-10-PCS; 2020-05-03)
PROC: 0DNW0ZZ Release Peritoneum, Open Approach (ICD-10-PCS; 2020-05-03)
PROC: 0UT90ZZ Resection of Uterus, Open Approach (ICD-10-PCS; principal; 2020-05-03 07:23)
DX: N93.9 Abnormal uterine and vaginal bleeding, unspecified (principal); D17.9 Benign lipomatous neoplasm, unspecified; E66.9 Obesity, unspecified; I25.10 Atherosclerotic heart disease of native coronary artery without angina pectoris; K66.0 Peritoneal adhesions (postprocedural) (postinfection); R73.03 Prediabetes; N83.209 Unspecified ovarian cyst, unspecified side; N85.2 Hypertrophy of uterus; N92.1 Excessive and frequent menstruation with irregular cycle; Z98.891 History of uterine scar from previous surgery; Q51.20 Other doubling of uterus, unspecified; Z68.30 Body mass index [BMI] 30.0-30.9, adult
CPT/HCPCS: 36415; 80053; 81001; 82948; 83735; 84132; 84443; 84703; 85025; 85610; 85730; 86885; 86900; 86901; 87081; 87635; 93005; A4215; A4355; A4618; A6253; A6449; A7000; C1758; G0378; J0131; J1100; J1170; J1580; J1650; J2001; J2060; J2175; J2250; J2405; J2704; J2710; J3010; J3370; J3490; J7030; J7120; P9045

== ENCOUNTER 2020-05-10 16:15 | Inpatient (IN) | payer MEDICAID ==
[~2020-05-10] VITALS: Ht 165.1 cm; Wt 73.8 kg
[~2020-05-10 16:15] MED LIST changes: +ENOX80SY7 SQ; +HYDR-4353 PO
[2020-05-10] MEDS ORDERED: morphine 4 MG/ML inj SYRINge IM ONE (19:20)
[2020-05-10 19:38] LABS: BASOPHILS # (AUTO) 0.1 X10'3 (0-0.2); BASOPHILS % (AUTO) 0.7 % (0-1); EOSINOPHILS # (AUTO) 0.2 X10'3 (0-0.9); EOSINOPHILS % (AUTO) 2.4 % (0-6); HEMATOCRIT 27.9 % (35.0-45.0); HEMOGLOBIN 9.7 g/dl (12.0-16.0); LYMPHOCYTES # (AUTO) 1.7 X10'3 (1.1-4.8); MEAN CORPUSCULAR HEMOGLOBIN 29.7 PG (27.0-31.0); MEAN CORPUSCULAR HGB CONC 34.7 g/dL (33.0-36.5); MEAN CORPUSCULAR VOLUME 85.5 FL (78-98); MEAN PLATELET VOLUME 8.4 FL (7.4-10.4); MONOCYTES # (AUTO) 0.6 X10'3 (0-0.9); MONOCYTES % (AUTO) 7.7 % (2-12); NEUTROPHILS # (AUTO) 5.1 X10'3 (1.8-7.7); NEUTROPHILS % (AUTO) 67.2 % (42-75); PLATELET COUNT 251 X10'3 (140-440); RED BLOOD COUNT 3.27 X10'6 (4.20-5.60); RED CELL DISTRIBUTION WIDTH 16.5 % (11.5-14.5); WHITE BLOOD COUNT 7.5 X10'3 (4.5-11.0)
[2020-05-10 19:54] LABS: ALANINE AMINOTRANSFERASE 42 U/L (12-78); ALBUMIN 3.5 G/DL (3.4-5.0); ALBUMIN/GLOBULIN RATIO 0.9 (1.1-1.5); ALKALINE PHOSPHATASE 110 IU/L (46-116); ANION GAP 7 (8-16); ASPARTATE AMINO TRANSFERASE 23 U/L (10-37); BILIRUBIN,TOTAL 1.1 MG/DL (0.1-1.0); BLOOD UREA NITROGEN 11 MG/DL (7-18); BUN/CREATININE RATIO 14.7 (6.6-38.0); CALCIUM 8.9 MG/DL (8.5-10.1); CHLORIDE 102 MMOL/L (99-107); CREATININE 0.75 MG/DL (0.40-0.90); GLUCOSE 103 MG/DL (70-104); SODIUM 137 MMOL/L (135-145); TOTAL CARBON DIOXIDE 27.8 MMOL/L (24-32); TOTAL PROTEIN 7.4 G/DL (6.4-8.2); eGFR 84 ML/MIN
[2020-05-10] MEDS ORDERED: iohexol 300mg/ml 100ml inj. ONE (20:09)
[2020-05-10] MEDS ORDERED: morphine 4 MG/ML inj SYRINge IV ONE (20:45)
[2020-05-10] MEDS ORDERED: NORMAL SALINE IV STA (21:52)
[2020-05-10] MEDS ORDERED: ampicillin inj 1 GM in normal saline 100ml IV soln 100 ML IV STA (21:52)
[2020-05-10] MEDS ORDERED: GENTAMICIN IV STA (21:52)
[2020-05-10] MEDS ORDERED: magnesium hydroxide 30ml (MOM) UD suspension PO PRN (22:15)
[2020-05-10] MEDS ORDERED: mag hydrox/Alum hydrox/simeth 30ml oral suspension PO PRN (22:15)
[2020-05-10] MEDS ORDERED: acetaminophen 325mg tablet PO PRN (22:15)
[2020-05-10] MEDS ORDERED: morphine 2 MG/ML inj. syringe IV PRN (22:15)
[2020-05-10] MEDS: normal saline 1000ml 1,000 ML IV SCH (22:15)
[2020-05-10] MEDS ORDERED: ondansetron/PF 4mg/2ml inj IV PRN (22:15)
[2020-05-10] MEDS ORDERED: clindamycin 300mg/D5W 50mL 50 ML IV SCH (22:21)
--- NOTE | 2020-05-10 23:00 | NUR ---
Received report from ER nurse Mahendra MARVIN. Will assume care.
[2020-05-10] MEDS: morphine 2 MG/ML inj. syringe IV PRN (23:32)
[2020-05-10 23:40] VITALS: BP 148/87
[2020-05-11] MEDS: morphine 2 MG/ML inj. syringe IV PRN ×4 (03:23→20:58)
[2020-05-11 05:27] LABS: BASOPHILS % (AUTO) 0.5 % (0-1); EOSINOPHILS # (AUTO) 0.2 X10'3 (0-0.9); EOSINOPHILS % (AUTO) 2.2 % (0-6); HEMATOCRIT 27.5 % (35.0-45.0); HEMOGLOBIN 9.3 g/dl (12.0-16.0); LYMPHOCYTES # (AUTO) 1.2 X10'3 (1.1-4.8); MEAN CORPUSCULAR HEMOGLOBIN 28.8 PG (27.0-31.0); MEAN CORPUSCULAR HGB CONC 33.9 g/dL (33.0-36.5); MEAN PLATELET VOLUME 9.1 FL (7.4-10.4); MONOCYTES # (AUTO) 0.6 X10'3 (0-0.9); MONOCYTES % (AUTO) 6.5 % (2-12); NEUTROPHILS # (AUTO) 6.5 X10'3 (1.8-7.7); NEUTROPHILS % (AUTO) 76.8 % (42-75); PLATELET COUNT 240 X10'3 (140-440); RED BLOOD COUNT 3.24 X10'6 (4.20-5.60); WHITE BLOOD COUNT 8.5 X10'3 (4.5-11.0)
[2020-05-11 05:32] LABS: ALBUMIN 3.4 G/DL (3.4-5.0); ANION GAP 9 (8-16); BLOOD UREA NITROGEN 12 MG/DL (7-18); BUN/CREATININE RATIO 15.2 (6.6-38.0); CHLORIDE 101 MMOL/L (99-107); CREATININE 0.79 MG/DL (0.40-0.90); GLUCOSE 113 MG/DL (70-104); POTASSIUM 3.9 MMOL/L (3.5-5.1); SODIUM 137 MMOL/L (135-145); TOTAL CARBON DIOXIDE 27.1 MMOL/L (24-32); eGFR 79 ML/MIN
--- NOTE | 2020-05-11 06:51 | NUR ---
Problems reprioritized. Patient report given, questions answered & plan of care reviewed with Sharon MARVIN.
--- NOTE | 2020-05-11 07:00 | NUR ---
Patient in room MIGUEL 344. I have received report from Patricia MARVIN and had the opportunity to ask questions and assume patient care.
[2020-05-11] MEDS: metroNIDAZOLE-Flagyl 500mg/NS 100 ML IV SCH ×2 (07:22→17:25)
[2020-05-11 08:00] VITALS: BP 119/75
[2020-05-11] MEDS: normal saline 1000ml 1,000 ML IV SCH ×2 (08:15→18:15)
[2020-05-11] MEDS ORDERED: magnesium hydroxide 30ml (MOM) UD suspension PO PRN (10:05)
[2020-05-11] MEDS ORDERED: acetaminophen 325mg tablet PO PRN (10:05)
[2020-05-11] MEDS ORDERED: bisacodyl 10mg suppository rectal RC PRN (10:05)
[2020-05-11 11:00] VITALS: BP 110/74
[2020-05-11 11:46] LABS: PARTIAL THROMBOPLASTIN TIME 49 SECONDS (22-32)
[2020-05-11] MEDS: cefepime inj 2 GM in normal saline 100ml IV soln 100 ML IV SCH ×2 (12:12→21:01)
[2020-05-11 13:36] VITALS: BP 127/76
[2020-05-11] MEDS: docusate sod 100mg capsule PO SCH ×2 (13:42→21:00)
[2020-05-11] MEDS: HYDROcodone/acetaminophen 10/325mg tab PO PRN ×2 (13:42→18:04)
--- NOTE | 2020-05-11 14:18 | NUR ---
reviewed student nurse charting
--- NOTE | 2020-05-11 18:27 | NUR ---
Problems reprioritized. Patient report given, questions answered & plan of care reviewed with Eduardo MARVIN.
[2020-05-11 19:24] VITALS: BP 103/70
[2020-05-12] VITALS: BP 95/56
[2020-05-12] MEDS: metroNIDAZOLE-Flagyl 500mg/NS 100 ML IV SCH ×2 (00:01→07:18)
[2020-05-12] MEDS: HYDROcodone/acetaminophen 10/325mg tab PO PRN ×2 (00:06→07:18)
[2020-05-12] MEDS: normal saline 1000ml 1,000 ML IV SCH (05:02)
[2020-05-12 05:14] LABS: ANION GAP 5 (8-16); BLOOD UREA NITROGEN 9 MG/DL (7-18); BUN/CREATININE RATIO 10.8 (6.6-38.0); CALCIUM 8.8 MG/DL (8.5-10.1); CHLORIDE 104 MMOL/L (99-107); CREATININE 0.83 MG/DL (0.40-0.90); GLUCOSE 119 MG/DL (70-104); POTASSIUM 3.7 MMOL/L (3.5-5.1); SODIUM 137 MMOL/L (135-145); TOTAL CARBON DIOXIDE 27.6 MMOL/L (24-32); eGFR 75 ML/MIN
[2020-05-12 05:17] LABS: EOSINOPHILS # (AUTO) 0.1 X10'3 (0-0.9); HEMOGLOBIN 8.8 g/dl (12.0-16.0); MONOCYTES # (AUTO) 0.5 X10'3 (0-0.9)
[2020-05-12 05:20] LABS: BASOPHILS % (AUTO) 0.5 % (0-1); HEMATOCRIT 25.3 % (35.0-45.0); LYMPHOCYTES # (AUTO) 1.1 X10'3 (1.1-4.8); LYMPHOCYTES % (AUTO) 14.9 % (21-51); MEAN CORPUSCULAR HEMOGLOBIN 29.8 PG (27.0-31.0); MEAN CORPUSCULAR HGB CONC 34.9 g/dL (33.0-36.5); MEAN CORPUSCULAR VOLUME 85.2 FL (78-98); MEAN PLATELET VOLUME 8.8 FL (7.4-10.4); NEUTROPHILS # (AUTO) 5.5 X10'3 (1.8-7.7); NEUTROPHILS % (AUTO) 75.6 % (42-75); PLATELET COUNT 239 X10'3 (140-440); RED BLOOD COUNT 2.96 X10'6 (4.20-5.60); RED CELL DISTRIBUTION WIDTH 16.3 % (11.5-14.5); WHITE BLOOD COUNT 7.2 X10'3 (4.5-11.0)
--- NOTE | 2020-05-12 06:30 | NUR ---
Patient in room MIGUEL 344. I have received report from Eduardo MARVIN and had the opportunity to ask questions and assume patient care.
[2020-05-12] MEDS: docusate sod 100mg capsule PO SCH (07:18)
[2020-05-12 08:00] VITALS: BP 120/71
[2020-05-12] MEDS: cefepime inj 2 GM in normal saline 100ml IV soln 100 ML IV SCH (08:00)
[2020-05-12 11:00] VITALS: BP 122/73
[2020-05-12] MEDS ORDERED: ENOX80SY7 SUBCUT (12:15)
--- NOTE | 2020-05-12 14:30 | NUR ---
Pt DC to home with her family. Pt is A & O, reports mild pain but able to walk and move around. pt showered and got dresses with minimal assist. Pt verbalizes understanding of all DC orders. pt will go to Coumadin clinic to get blood drawn tomorrow to check INR levels. Pt educated and given papers about therapeutic levels of INR d/t artificial heart valve. pt able to teach back all education. Pt packed and carried her personal belongings and was wheeled to the front of the hospital where family picked her up. Pt will go to Dr Novoa's office tp molded goods spot picker prescription to get pain medications.
== END 2020-05-12 14:30 | disposition home or self-care (01) | DRG 721 ==
LOC: ER 16:16 → ED HOLD 22:15 → SUR 3N 23:23
PROVIDERS: ADMIT Family Medicine; ATTEND Family Medicine
PROC: BW211ZZ Computerized Tomography (CT Scan) of Abdomen and Pelvis using Low Osmolar Contrast (ICD-10-PCS; principal; 2020-05-10)
PROC: BT101ZZ Fluoroscopy of Bladder using Low Osmolar Contrast (ICD-10-PCS; 2020-05-11)
DX: T81.43XA Infection following a procedure, organ and space surgical site, initial encounter (principal); E03.9 Hypothyroidism, unspecified; E78.00 Pure hypercholesterolemia, unspecified; E78.5 Hyperlipidemia, unspecified; G89.29 Other chronic pain; M54.9 Dorsalgia, unspecified; S36.62XA Contusion of rectum, initial encounter; D50.0 Iron deficiency anemia secondary to blood loss (chronic); G40.909 Epilepsy, unspecified, not intractable, without status epilepticus; N36.0 Urethral fistula; Y83.8 Other surgical procedures as the cause of abnormal reaction of the patient, or of later complication, without mention of misadventure at the time of the procedure; I10 Essential (primary) hypertension; I25.10 Atherosclerotic heart disease of native coronary artery without angina pectoris; I25.2 Old myocardial infarction; Z79.01 Long term (current) use of anticoagulants; Z90.710 Acquired absence of both cervix and uterus; Y92.89 Other specified places as the place of occurrence of the external cause; Z88.0 Allergy status to penicillin
CPT/HCPCS: 36415; 74177; 80048; 80053; 85025; 85610; 85730; 87081; 96372; 96374; 99285; G0378; J0290; J0692; J1580; J2270; J3490; J7030; Q9967

== ENCOUNTER 2020-07-20 18:36 | Emergency (ER) | payer MEDICAID ==
[~2020-07-20] VITALS: Ht 165.1 cm; Wt 86.4 kg
[~2020-07-20 18:36] MED LIST changes: -ENOX80SY7 SQ; +ENOX80SY7 SUBCUT; -ESCI10TA61 PO; +ESCI20TA16 PO; -HYDR-4353 PO; -LEVO125T8 PO; +LEVO137T2 PO
[2020-07-20] MEDS ORDERED: ondansetron/PF 4mg/2ml inj IV ONE (19:45)
[2020-07-20] MEDS ORDERED: normal saline 1000ML IV soln IVB ONE (19:45)
[2020-07-20] MEDS ORDERED: morphine 4 MG/ML inj SYRINge IV PRN (19:45)
[2020-07-20 19:53] LABS: BASOPHILS # (AUTO) 0.1 X10'3 (0-0.2); BASOPHILS % (AUTO) 0.8 % (0-1); EOSINOPHILS # (AUTO) 0.2 X10'3 (0-0.9); EOSINOPHILS % (AUTO) 2.1 % (0-6); HEMATOCRIT 38.2 % (35.0-45.0); HEMOGLOBIN 12.8 g/dl (12.0-16.0); LYMPHOCYTES # (AUTO) 2.1 X10'3 (1.1-4.8); LYMPHOCYTES % (AUTO) 24.4 % (21-51); MEAN CORPUSCULAR HEMOGLOBIN 26.2 PG (27.0-31.0); MEAN CORPUSCULAR HGB CONC 33.5 g/dL (33.0-36.5); MEAN CORPUSCULAR VOLUME 78.2 FL (78-98); MEAN PLATELET VOLUME 9.1 FL (7.4-10.4); MONOCYTES # (AUTO) 0.5 X10'3 (0-0.9); MONOCYTES % (AUTO) 6.3 % (2-12); NEUTROPHILS # (AUTO) 5.7 X10'3 (1.8-7.7); NEUTROPHILS % (AUTO) 66.4 % (42-75); PLATELET COUNT 232 X10'3 (140-440); RED BLOOD COUNT 4.89 X10'6 (4.20-5.60); RED CELL DISTRIBUTION WIDTH 17.7 % (11.5-14.5); WHITE BLOOD COUNT 8.6 X10'3 (4.5-11.0)
[2020-07-20 19:56] LABS: CLARITY,URINE CLEAR (Clear); COLOR,URINE YELLOW (Yellow); GLUCOSE, URINE NEGATIVE (Neg); KETONES,URINE NEGATIVE (Neg); LEUKOCYTE ESTERASE ,URINE NEGATIVE (Neg); NITRITES, URINE NEGATIVE (Neg); OCCULT BLOOD,URINE NEGATIVE (Neg); PROTEIN,URINE NEGATIVE (Neg); UA COLLECTION TYPE CLN CATCH MIDSTREAM; UROBILINOGEN,URINE 0.2 E.U/dL (0.2-1.0)
[2020-07-20 20:07] LABS: ALANINE AMINOTRANSFERASE 41 U/L (12-78); ALBUMIN 4.1 G/DL (3.4-5.0); ALBUMIN/GLOBULIN RATIO 0.9 (1.1-1.5); ALKALINE PHOSPHATASE 153 IU/L (46-116); ANION GAP 10 (8-16); ASPARTATE AMINO TRANSFERASE 26 U/L (10-37); BILIRUBIN,TOTAL 0.9 MG/DL (0.1-1.0); BLOOD UREA NITROGEN 12 MG/DL (7-18); BUN/CREATININE RATIO 16.9 (6.6-38.0); CALCIUM 9.6 MG/DL (8.5-10.1); CHLORIDE 104 MMOL/L (99-107); CREATININE 0.71 MG/DL (0.40-0.90); GLUCOSE 122 MG/DL (70-104); HCG SERUM QL NEGATIVE; LIPASE 190 U/L (73-393); SODIUM 140 MMOL/L (135-145); TOTAL CARBON DIOXIDE 26.3 MMOL/L (24-32); TOTAL PROTEIN 8.6 G/DL (6.4-8.2); eGFR 89 ML/MIN
[2020-07-20 20:09] LABS: POTASSIUM 3.5 MMOL/L (3.5-5.1)
[2020-07-20] MEDS ORDERED: METO10TA3 PO (21:08)
[2020-07-20] MEDS ORDERED: DICY10CA88 PO (21:08)
[2020-07-20] MEDS ORDERED: metoclopramide 5 mg/ml inj IV ONE (21:15)
[2020-07-20] MEDS ORDERED: LORazepam 2 mg/ml vial IV ONE (21:15)
[2020-07-20 21:30] VITALS: BP 138/84
== END 2020-07-20 21:32 | disposition home or self-care (01) ==
LOC: ER 18:36
DX: R10.30 Lower abdominal pain, unspecified (principal); R11.2 Nausea with vomiting, unspecified; K59.00 Constipation, unspecified; I25.10 Atherosclerotic heart disease of native coronary artery without angina pectoris; E78.00 Pure hypercholesterolemia, unspecified; I10 Essential (primary) hypertension; G89.29 Other chronic pain; Z98.890 Other specified postprocedural states; Z88.0 Allergy status to penicillin; Z79.82 Long term (current) use of aspirin; Z79.899 Other long term (current) drug therapy
CPT/HCPCS: 36415; 74018; 80053; 81003; 83690; 84703; 85025; 93005; 96374; 96375; 99285; J2060; J2270; J2405; J2765; J7030

== ENCOUNTER 2020-10-31 13:18 | Emergency (ER) | payer MEDICAID ==
[~2020-10-31] VITALS: Ht 165.1 cm; Wt 89.5 kg
[~2020-10-31 13:18] MED LIST changes: +DICY10CA88 PO
[2020-10-31 13:59] LABS: BASOPHILS % (AUTO) 0.6 % (0-1); EOSINOPHILS # (AUTO) 0.2 X10'3 (0-0.9); EOSINOPHILS % (AUTO) 2.6 % (0-6); HEMATOCRIT 36.1 % (35.0-45.0); LYMPHOCYTES # (AUTO) 1.5 X10'3 (1.1-4.8); LYMPHOCYTES % (AUTO) 26.2 % (21-51); MEAN CORPUSCULAR HEMOGLOBIN 26.8 PG (27.0-31.0); MEAN CORPUSCULAR HGB CONC 33.1 g/dL (33.0-36.5); MEAN CORPUSCULAR VOLUME 80.9 FL (78-98); MEAN PLATELET VOLUME 9.3 FL (7.4-10.4); MONOCYTES # (AUTO) 0.4 X10'3 (0-0.9); MONOCYTES % (AUTO) 7.4 % (2-12); NEUTROPHILS # (AUTO) 3.7 X10'3 (1.8-7.7); NEUTROPHILS % (AUTO) 63.2 % (42-75); PLATELET COUNT 250 X10'3 (140-440); RED BLOOD COUNT 4.46 X10'6 (4.20-5.60); RED CELL DISTRIBUTION WIDTH 17.6 % (11.5-14.5); WHITE BLOOD COUNT 5.9 X10'3 (4.5-11.0)
[2020-10-31 14:10] LABS: ALANINE AMINOTRANSFERASE 45 U/L (12-78); ALBUMIN 3.9 G/DL (3.4-5.0); ALKALINE PHOSPHATASE 116 IU/L (46-116); ANION GAP 9 (8-16); ASPARTATE AMINO TRANSFERASE 25 U/L (10-37); BLOOD UREA NITROGEN 15 MG/DL (7-18); CHLORIDE 106 MMOL/L (99-107); CREATININE 0.75 MG/DL (0.40-0.90); GLUCOSE 97 MG/DL (70-104); POTASSIUM 4.2 MMOL/L (3.5-5.1); SODIUM 144 MMOL/L (135-145); TOTAL CARBON DIOXIDE 29.2 MMOL/L (24-32); TOTAL PROTEIN 7.9 G/DL (6.4-8.2); eGFR 84 ML/MIN
[2020-10-31 15:24] VITALS: BP 114/63
== END 2020-10-31 15:26 | disposition home or self-care (01) ==
LOC: ER 13:19
DX: R07.89 Other chest pain (principal); R42 Dizziness and giddiness; R51.9 Headache, unspecified; R06.89 Other abnormalities of breathing; I25.10 Atherosclerotic heart disease of native coronary artery without angina pectoris; E78.00 Pure hypercholesterolemia, unspecified; I10 Essential (primary) hypertension; I25.2 Old myocardial infarction; G89.29 Other chronic pain; Z88.0 Allergy status to penicillin; Z79.82 Long term (current) use of aspirin; Z79.01 Long term (current) use of anticoagulants; Z79.899 Other long term (current) drug therapy
CPT/HCPCS: 36415; 71045; 80053; 83880; 84484; 85025; 93005; 99285

== ENCOUNTER 2020-11-26 12:59 | Emergency (ER) | payer MEDICAID ==
[~2020-11-26] VITALS: Ht 165.1 cm; Wt 93.2 kg
[2020-11-26 13:27] LABS: BASOPHILS % (AUTO) 0.6 % (0-1); EOSINOPHILS # (AUTO) 0.2 X10'3 (0-0.9); EOSINOPHILS % (AUTO) 2.8 % (0-6); HEMOGLOBIN 12.4 g/dl (12.0-16.0); LYMPHOCYTES # (AUTO) 1.4 X10'3 (1.1-4.8); LYMPHOCYTES % (AUTO) 25.5 % (21-51); MEAN CORPUSCULAR HEMOGLOBIN 26.3 PG (27.0-31.0); MEAN CORPUSCULAR HGB CONC 32.7 g/dL (33.0-36.5); MEAN CORPUSCULAR VOLUME 80.5 FL (78-98); MEAN PLATELET VOLUME 9.5 FL (7.4-10.4); MONOCYTES # (AUTO) 0.4 X10'3 (0-0.9); MONOCYTES % (AUTO) 6.6 % (2-12); NEUTROPHILS # (AUTO) 3.5 X10'3 (1.8-7.7); NEUTROPHILS % (AUTO) 64.5 % (42-75); PLATELET COUNT 207 X10'3 (140-440); RED BLOOD COUNT 4.72 X10'6 (4.20-5.60); WHITE BLOOD COUNT 5.5 X10'3 (4.5-11.0)
[2020-11-26 13:41] LABS: PARTIAL THROMBOPLASTIN TIME 41 SECONDS (22-32)
[2020-11-26 14:26] LABS: CLARITY,URINE CLEAR (Clear); COLOR,URINE STRAW (Yellow); GLUCOSE, URINE NEGATIVE (Neg); KETONES,URINE NEGATIVE (Neg); LEUKOCYTE ESTERASE ,URINE NEGATIVE (Neg); NITRITES, URINE NEGATIVE (Neg); OCCULT BLOOD,URINE TRACE-INTACT (Neg); PROTEIN,URINE NEGATIVE (Neg); UA COLLECTION TYPE NON-SPECIFIED; UROBILINOGEN,URINE 0.2 E.U/dL (0.2-1.0)
[2020-11-26 14:31] LABS: BACTERIA,URINE FEW /HPF (Neg); MUCUS STRANDS NONE SEEN /LPF (Neg); RBC,URINE 0-2 /HPF (0-2); SQUAMOUS EPITHELIAL CELL,UR MODERATE /LPF (FEW); WBC,URINE 0-4 /HPF (0-4)
[2020-11-26 17:12] VITALS: BP 118/73
== END 2020-11-26 17:30 | disposition home or self-care (01) ==
LOC: ER 12:59
DX: R07.89 Other chest pain (principal); I25.10 Atherosclerotic heart disease of native coronary artery without angina pectoris; E78.00 Pure hypercholesterolemia, unspecified; I10 Essential (primary) hypertension; I25.2 Old myocardial infarction; G89.29 Other chronic pain; Z98.890 Other specified postprocedural states; Z88.0 Allergy status to penicillin; Z79.82 Long term (current) use of aspirin; Z79.899 Other long term (current) drug therapy
CPT/HCPCS: 36415; 71045; 81001; 83735; 83880; 84484; 85025; 85610; 85730; 93005; 99285

== ENCOUNTER 2020-11-30 11:26 | Day surgery (SDC) | payer MEDICAID ==
[2020-11-25 13:09] LABS: BASOPHILS % (AUTO) 0.6 % (0-1); EOSINOPHILS # (AUTO) 0.1 X10'3 (0-0.9); EOSINOPHILS % (AUTO) 2.7 % (0-6); HEMATOCRIT 36.7 % (35.0-45.0); LYMPHOCYTES # (AUTO) 1.5 X10'3 (1.1-4.8); LYMPHOCYTES % (AUTO) 28.3 % (21-51); MEAN CORPUSCULAR HGB CONC 32.6 g/dL (33.0-36.5); MEAN CORPUSCULAR VOLUME 79.8 FL (78-98); MEAN PLATELET VOLUME 9.4 FL (7.4-10.4); MONOCYTES # (AUTO) 0.4 X10'3 (0-0.9); MONOCYTES % (AUTO) 7.3 % (2-12); NEUTROPHILS # (AUTO) 3.2 X10'3 (1.8-7.7); NEUTROPHILS % (AUTO) 61.1 % (42-75); PLATELET COUNT 210 X10'3 (140-440); WHITE BLOOD COUNT 5.2 X10'3 (4.5-11.0)
[2020-11-25 13:17] LABS: ALBUMIN 4.1 G/DL (3.4-5.0); ANION GAP 10 (8-16); BLOOD UREA NITROGEN 16 MG/DL (7-18); BUN/CREATININE RATIO 23.5 (6.6-38.0); CALCIUM 9.6 MG/DL (8.5-10.1); CHLORIDE 106 MMOL/L (99-107); CREATININE 0.68 MG/DL (0.40-0.90); GLUCOSE 95 MG/DL (70-104); POTASSIUM 4.1 MMOL/L (3.5-5.1); SODIUM 143 MMOL/L (135-145); eGFR > 90 ML/MIN
[2020-11-25 13:21] LABS: PARTIAL THROMBOPLASTIN TIME 41 SECONDS (22-32)
[~2020-11-30] VITALS: Ht 165.1 cm; Wt 90.6 kg
[2020-11-30] VITALS (9 sets, daily range): BP systolic 113–130; BP diastolic 63–93
[2020-11-30] MEDS ORDERED: LORazepam 0.5 MG tablet PO PRN (11:40)
[2020-11-30] MEDS ORDERED: LIDOcaine/PRILOcaine 5gm cream TP ONE (11:40)
[2020-11-30] MEDS ORDERED: normal saline 1,000 ML IV SCH (11:40)
[2020-11-30] MEDS ORDERED: diphenhydrAMINE 25mg capsule PO PRN (11:40)
[2020-11-30] MEDS ORDERED: LEVO125T PO (12:06)
[2020-11-30] MEDS ORDERED: METF500T PO (12:06)
[2020-11-30] MEDS ORDERED: ACET650T13 (12:06)
[2020-11-30] MEDS ORDERED: POLY17PO10 PO (12:06)
[2020-11-30] MEDS ORDERED: LYR25C PO (12:06)
[2020-11-30] MEDS ORDERED: [UNRECOGNIZED DRUG - OTHER] (12:06)
[2020-11-30 13:00] LABS: PARTIAL THROMBOPLASTIN TIME 27 SECONDS (22-32)
[2020-11-30] MEDS ORDERED: verapamil 2.5 mg/ml inj IV ONE (13:25)
[2020-11-30] MEDS ORDERED: heparin 1,000unit/ml 10ml vial 10 ML ONE (13:26)
[2020-11-30] MEDS ORDERED: iohexol 350MG/ML 100ml bottle IV ONE (13:26)
[2020-11-30] MEDS ORDERED: midazolam 1 mg/ML 2ml injection ONE (13:26)
[2020-11-30] MEDS ORDERED: nitroGLYCERIN-Tridil 50MG/D5W 250 ML IV ONE (13:26)
[2020-11-30] MEDS ORDERED: fentaNYL/PF 50MCG/1 ML 2ML syringe ONE (13:26)
[2020-11-30] MEDS ORDERED: LIDOcaine 1% (10mg/ml)w/preservative injection 20ml MDV ONE (13:26)
--- NOTE | 2020-11-30 13:35 | NUR ---
Patient taken to laboratory apparatus glass grinder via [facility]
[2020-11-30] MEDS ORDERED: ondansetron/PF 4mg/2ml inj IV PRN (15:10)
[2020-11-30] MEDS ORDERED: OXAZEpam 15mg capsule PO PRN (15:10)
[2020-11-30] MEDS ORDERED: proCHLORperazine 10 MG/2 ml inj IV PRN (15:10)
[2020-11-30] MEDS ORDERED: HYDROcodone/acetaminophen 5mg/325mg tablet PO PRN (15:10)
[2020-11-30] MEDS ORDERED: acetaminophen 325mg tablet PO PRN (15:10)
[2020-11-30] MEDS ORDERED: HYDROcodone/acetaminophen 10/325mg tab PO PRN (15:10)
--- NOTE | 2020-11-30 17:42 | NUR ---
Patient given DC instructions in Vietnamese and she verbalized understanding. Right wrist dressing applied and no s/s hematoma.
== END 2020-11-30 18:00 | disposition home or self-care (01) ==
LOC: SSTAY O 11:26
PROVIDERS: ATTEND Internal Medicine Interventional Cardiology
DX: R94.39 Abnormal result of other cardiovascular function study (principal); R07.9 Chest pain, unspecified; I10 Essential (primary) hypertension; E11.9 Type 2 diabetes mellitus without complications; I25.2 Old myocardial infarction; E03.9 Hypothyroidism, unspecified; E78.5 Hyperlipidemia, unspecified; Z95.2 Presence of prosthetic heart valve; Z79.899 Other long term (current) drug therapy; Z79.01 Long term (current) use of anticoagulants; Z79.84 Long term (current) use of oral hypoglycemic drugs; Z79.82 Long term (current) use of aspirin
CPT/HCPCS: 36415; 80048; 85025; 85610; 85730; 93005; 93454; 99152; C1769; C1894; J1644; J2001; J2250; J3010; J7030; Q0163; Q9967; 99153; J3490

== ENCOUNTER 2020-12-07 13:04 | Emergency (ER) | payer MEDICAID ==
[~2020-12-07] VITALS: Ht 154.9 cm; Wt 90.0 kg
[~2020-12-07 13:04] MED LIST changes: +ACET650T13; -DICY10CA88 PO; -DULO60CA65 PO; -ENOX80SY7 SUBCUT; +LEVO125T PO; -LEVO137T2 PO; +LYR25C PO; +METF500T PO; +POLY17PO10 PO; +[UNRECOGNIZED DRUG - OTHER]
[2020-12-07 13:20] VITALS: BP 135/80
[2020-12-07] MEDS ORDERED: enoxaparin 100mg/ml syringe SUBCUT ONE (14:15)
--- NOTE | 2020-12-07 15:15 | NUR ---
US TECH AT BEDSIDE TO PERFORM US AT THIS TIME.
== END 2020-12-07 16:30 | disposition home or self-care (01) ==
LOC: ER 13:05
DX: R07.89 Other chest pain (principal); D68.8 Other specified coagulation defects; I25.10 Atherosclerotic heart disease of native coronary artery without angina pectoris; E78.00 Pure hypercholesterolemia, unspecified; I10 Essential (primary) hypertension; I25.2 Old myocardial infarction; G89.29 Other chronic pain; Z98.890 Other specified postprocedural states; Z79.01 Long term (current) use of anticoagulants; Z88.0 Allergy status to penicillin; Z88.8 Allergy status to other drugs, medicaments and biological substances; Z79.82 Long term (current) use of aspirin; Z79.84 Long term (current) use of oral hypoglycemic drugs; Z79.899 Other long term (current) drug therapy
CPT/HCPCS: 71045; 93005; 93970; 96372; 99284; J1650

== ENCOUNTER 2023-06-02 15:44 | Emergency (ER) | payer MEDICAID ==
[~2023-06-02] VITALS: Ht 162.6 cm; Wt 93.5 kg
[2023-06-02 16:25] LABS: BASOPHILS % (AUTO) 0.3 % (0-1); EOSINOPHILS # (AUTO) 0.1 X10'3 (0-0.9); EOSINOPHILS % (AUTO) 0.9 % (0-6); HEMATOCRIT 39.5 % (35.0-45.0); HEMOGLOBIN 13.4 g/dl (12.0-16.0); LYMPHOCYTES # (AUTO) 1.1 X10'3 (1.1-4.8); LYMPHOCYTES % (AUTO) 13.6 % (21-51); MEAN CORPUSCULAR HEMOGLOBIN 29.3 PG (27.0-31.0); MEAN CORPUSCULAR VOLUME 86.3 FL (78-98); MEAN PLATELET VOLUME 9.2 FL (7.4-10.4); MONOCYTES # (AUTO) 0.5 X10'3 (0-0.9); MONOCYTES % (AUTO) 6.8 % (2-12); NEUTROPHILS % (AUTO) 78.4 % (42-75); PLATELET COUNT 220 X10'3 (140-440); RED BLOOD COUNT 4.58 X10'6 (4.20-5.60); RED CELL DISTRIBUTION WIDTH 15.4 % (11.5-14.5); WHITE BLOOD COUNT 7.7 X10'3 (4.5-11.0)
[2023-06-02 16:48] LABS: ALANINE AMINOTRANSFERASE 39 U/L (12-78); ALBUMIN 4.1 G/DL (3.4-5.0); ALBUMIN/GLOBULIN RATIO 0.9 (1.1-1.5); ALKALINE PHOSPHATASE 109 IU/L (46-116); ANION GAP 6 (8-16); ASPARTATE AMINO TRANSFERASE 20 U/L (10-37); BILIRUBIN,TOTAL 1.3 MG/DL (0.1-1.0); BLOOD UREA NITROGEN 13 MG/DL (7-18); BUN/CREATININE RATIO 15.5 (10.0-20.0); CALCIUM 9.5 MG/DL (8.5-10.1); CHLORIDE 100 MMOL/L (99-107); CREATININE 0.84 MG/DL (0.40-0.90); GLUCOSE 137 MG/DL (70-104); POTASSIUM 3.8 MMOL/L (3.5-5.1); SODIUM 133 MMOL/L (135-145); TOTAL CARBON DIOXIDE 27.5 MMOL/L (24-32); TOTAL PROTEIN 8.5 G/DL (6.4-8.2); eCRCL 72 ML/MIN; eGFR 73 ML/MIN
[2023-06-02 17:00] LABS: PRO BRAIN NATRIURETIC PEPTIDE 72 PG/ML (0-125)
--- NOTE | 2023-06-02 20:19 | NUR ---
I have reviewed and agree with all interventions, assessments performed and documented by trina HICKEY
[2023-06-02 21:29] LABS: INR 3.1 INR; PROTHROMBIN TIME 30.6 SECONDS (9.0-12.0)
[2023-06-02 21:32] LABS: D-DIMER < 0.19 MG/L FEU (0-0.50)
[2023-06-02] MEDS ORDERED: oxyCODONE/APAP 5-325mg tablet PO ONE (22:20)
[2023-06-02] MEDS ORDERED: OXYC-145 PO (22:22)
[2023-06-02 22:37] VITALS: BP 126/83; PULSE 99; RESP 17; TEMP 99.8; O2SAT 96
== END 2023-06-02 22:43 | disposition home or self-care (01) ==
LOC: ER 15:45
DX: B34.9 Viral infection, unspecified (principal); Z20.822 Contact with and (suspected) exposure to COVID-19; R00.2 Palpitations; K08.89 Other specified disorders of teeth and supporting structures
CPT/HCPCS: 36415; 71045; 80053; 83880; 84484; 85025; 85379; 85610; 87502; 87503; 87811; 93005; 99285

== ENCOUNTER 2023-10-26 16:34 | Emergency (ER) | payer MEDICAID ==
[~2023-10-26] VITALS: Ht 160 cm; Wt 92.3 kg
[~2023-10-26 16:34] MED LIST changes: +OXYC-145 PO
[2023-10-26 16:46] VITALS: TEMP 98.2
[2023-10-26 16:59] LABS: BASOPHILS % (AUTO) 0.7 % (0-1); EOSINOPHILS # (AUTO) 0.1 X10'3 (0-0.9); EOSINOPHILS % (AUTO) 2.3 % (0-6); HEMATOCRIT 34.8 % (35.0-45.0); HEMOGLOBIN 11.7 g/dl (12.0-16.0); LYMPHOCYTES # (AUTO) 1.2 X10'3 (1.1-4.8); LYMPHOCYTES % (AUTO) 23.6 % (21-51); MEAN CORPUSCULAR HEMOGLOBIN 27.5 PG (27.0-31.0); MEAN CORPUSCULAR HGB CONC 33.5 g/dL (33.0-36.5); MEAN PLATELET VOLUME 9.7 FL (7.4-10.4); MONOCYTES # (AUTO) 0.3 X10'3 (0-0.9); MONOCYTES % (AUTO) 4.9 % (2-12); NEUTROPHILS # (AUTO) 3.6 X10'3 (1.8-7.7); NEUTROPHILS % (AUTO) 68.5 % (42-75); PLATELET COUNT 189 X10'3 (140-440); RED BLOOD COUNT 4.25 X10'6 (4.20-5.60); RED CELL DISTRIBUTION WIDTH 16.8 % (11.5-14.5); WHITE BLOOD COUNT 5.2 X10'3 (4.5-11.0)
[2023-10-26 17:17] LABS: ALBUMIN 4.2 G/DL (3.4-5.0); ANION GAP 12 (8-16); BLOOD UREA NITROGEN 20 MG/DL (7-18); BUN/CREATININE RATIO 21.5 (10.0-20.0); CALCIUM 8.9 MG/DL (8.5-10.1); CHLORIDE 102 MMOL/L (99-107); CREATININE 0.93 MG/DL (0.40-0.90); GLUCOSE 221 MG/DL (70-104); POTASSIUM 3.8 MMOL/L (3.5-5.1); PRO BRAIN NATRIURETIC PEPTIDE 51 PG/ML (0-125); SODIUM 140 MMOL/L (135-145); TOTAL CARBON DIOXIDE 26.4 MMOL/L (24-32); eCRCL 62 ML/MIN; eGFR 65 ML/MIN
[2023-10-26 19:48] VITALS: BP 134/84; PULSE 79; RESP 16; O2SAT 98
[2023-10-26 20:21] LABS: D-DIMER < 0.19 MG/L FEU (0-0.50)
== END 2023-10-26 21:04 | disposition home or self-care (01) ==
LOC: ER 16:34
DX: R07.89 Other chest pain (principal); E78.00 Pure hypercholesterolemia, unspecified; I10 Essential (primary) hypertension; E07.9 Disorder of thyroid, unspecified; I25.10 Atherosclerotic heart disease of native coronary artery without angina pectoris; I25.2 Old myocardial infarction; Z88.0 Allergy status to penicillin; Z88.8 Allergy status to other drugs, medicaments and biological substances; Z79.899 Other long term (current) drug therapy; Z79.82 Long term (current) use of aspirin; Z79.2 Long term (current) use of antibiotics
CPT/HCPCS: 36415; 71045; 80048; 83880; 84484; 85025; 85379; 93005; 99285

== ENCOUNTER 2024-04-21 12:32 | Emergency (ER) | payer MEDICAID ==
[~2024-04-21] VITALS: Ht 157.5 cm; Wt 91.4 kg
[~2024-04-21 12:32] MED LIST changes: -ESCI20TA16 PO; +ESCI20TA52 PO
[2024-04-21 13:15] LABS: BASOPHILS % (AUTO) 0.6 % (0-1); EOSINOPHILS # (AUTO) 0.2 X10'3 (0-0.9); HEMATOCRIT 41.5 % (35.0-45.0); HEMOGLOBIN 14.2 g/dl (12.0-16.0); LYMPHOCYTES # (AUTO) 1.7 X10'3 (1.1-4.8); LYMPHOCYTES % (AUTO) 33.8 % (21-51); MEAN CORPUSCULAR HEMOGLOBIN 29.6 PG (27.0-31.0); MEAN CORPUSCULAR HGB CONC 34.3 g/dL (33.0-36.5); MEAN CORPUSCULAR VOLUME 86.3 FL (78-98); MEAN PLATELET VOLUME 10.5 FL (7.4-10.4); MONOCYTES # (AUTO) 0.4 X10'3 (0-0.9); MONOCYTES % (AUTO) 7.4 % (2-12); NEUTROPHILS # (AUTO) 2.8 X10'3 (1.8-7.7); NEUTROPHILS % (AUTO) 55.2 % (42-75); PLATELET COUNT 157 X10'3 (140-440); RED BLOOD COUNT 4.81 X10'6 (4.20-5.60); RED CELL DISTRIBUTION WIDTH 16.3 % (11.5-14.5)
--- NOTE | 2024-04-21 13:20 | NUR ---
to ct scan.
[2024-04-21 13:28] LABS: ALBUMIN 4.6 G/DL (3.4-5.0); ANION GAP 12 (8-16); BLOOD UREA NITROGEN 14 MG/DL (7-18); BUN/CREATININE RATIO 19.7 (10.0-20.0); CALCIUM 9.8 MG/DL (8.5-10.1); CHLORIDE 104 MMOL/L (99-107); CREATININE 0.71 MG/DL (0.40-0.90); GLUCOSE 98 MG/DL (70-104); POTASSIUM 4.1 MMOL/L (3.5-5.1); PRO BRAIN NATRIURETIC PEPTIDE 126 PG/ML (0-125); SODIUM 140 MMOL/L (135-145); TOTAL CARBON DIOXIDE 23.8 MMOL/L (24-32); eCRCL 77 ML/MIN; eGFR 88 ML/MIN
[2024-04-21 15:24] LABS: INR 2.1 INR; PROTHROMBIN TIME 21.4 SECONDS (9.0-12.0)
[2024-04-21 15:54] VITALS: BP 125/66; PULSE 59; RESP 19; TEMP 98.7; O2SAT 96
== END 2024-04-21 15:57 | disposition home or self-care (01) ==
LOC: ER 12:33
DX: R07.89 Other chest pain (principal); R42 Dizziness and giddiness; I25.10 Atherosclerotic heart disease of native coronary artery without angina pectoris; E78.00 Pure hypercholesterolemia, unspecified; I10 Essential (primary) hypertension; G89.29 Other chronic pain; M54.9 Dorsalgia, unspecified; Z88.0 Allergy status to penicillin; Z88.1 Allergy status to other antibiotic agents; Z79.82 Long term (current) use of aspirin; Z79.899 Other long term (current) drug therapy
CPT/HCPCS: 36415; 70450; 71045; 80048; 83880; 84484; 85025; 85610; 93005; 99285